=== PATIENT | female | born 1950 | race Caucasian/White ===

== ENCOUNTER 2017-07-18 10:53 | Emergency (ER) | payer MEDICARE, OTHER ==
[2017-07-18] MEDS ORDERED: HYDROmorphONE 1 MG/ML SYG IV (13:16)
[2017-07-18] MEDS: HYDROmorphONE 0.5 MG/0.5 ML SYG IV (13:50)
[2017-07-18] MEDS: PROCHLORPERAZINE 10 MG INJ IV (13:51)
[2017-07-18] MEDS: DIPHENHYDRAMINE 50 MG INJ IV (13:51)
== END 2017-07-18 16:00 | disposition home or self-care (01) ==
LOC: E/R 10:53
DX: G43.909 Migraine, unspecified, not intractable, without status migrainosus (principal); R11.10 Vomiting, unspecified; J45.909 Unspecified asthma, uncomplicated; E11.9 Type 2 diabetes mellitus without complications; I10 Essential (primary) hypertension; Z79.4 Long term (current) use of insulin; Z79.82 Long term (current) use of aspirin
CPT/HCPCS: 70450; 96374; 96375; 99285-25